=== PATIENT | male | born 1985 | race Two or more races ===

== ENCOUNTER 2021-05-20 04:01 | Emergency (ER) | payer OTHER ==
[~2021-05-20] VITALS: Ht 175.3 cm; Wt 98.0 kg
[2021-05-20] MEDS ORDERED: ZYNCOF 20-400120 ML PO (07:34)
[2021-05-20] MEDS ORDERED: ZITHROMAX500 MG PO (07:34)
[2021-05-20] MEDS ORDERED: ALBUTEROL2.5 MG/3 M IH (07:34)
[2021-05-20] MEDS ORDERED: SYMBICORT 16010.2 GM IH (07:34)
[2021-05-20] MEDS ORDERED: PROVENTIL HFA6.7 GM IH (07:34)
== END 2021-05-20 07:39 ==
LOC: ER 04:01
DX: J40 Bronchitis, not specified as acute or chronic (principal); Z20.822 Contact with and (suspected) exposure to COVID-19